=== PATIENT | male | born 2000 | race African-American/Black ===

== ENCOUNTER 2023-09-11 19:06 | Emergency (ER) | payer BC ==
[~2023-09-11] VITALS: Ht 185.4 cm; Wt 90.9 kg
[~2023-09-11 19:06] MED LIST: BACTRIM DS 8001 TAB PO
[2023-09-11 19:10] VITALS: BP 134/83; TEMP 98.3
[2023-09-11] MEDS ORDERED: NORCO 325 MG-51 TAB PO (19:39)
[2023-09-11 20:03] VITALS: PULSE 89
== END 2023-09-11 20:05 | disposition home or self-care (01) ==
LOC: COL.ER 19:06
DX: S86.001A Unspecified injury of right Achilles tendon, initial encounter (principal); X50.1XXA Overexertion from prolonged static or awkward postures, initial encounter; Y93.67 Activity, basketball
CPT/HCPCS: J2270; L4386

== ENCOUNTER 2023-09-13 08:30 | Day surgery (SDC) | payer BC ==
[~2023-09-13] VITALS: Ht 185.4 cm; Wt 93.4 kg
[~2023-09-13 08:30] MED LIST changes: +NORCO 325 MG-51 TAB PO
[2023-09-13 09:58] VITALS: BP 124/67; PULSE 74; TEMP 98.2
--- NOTE | 2023-09-13 10:01 | NUR ---
1000 PHYSICAL THERAPY HERE AND INSTRUCTS PATIENT ON PROPER CRUTCH WALKING AND TRANSFERRING. PATIENT AMBULATES IN HALLWAY DEMONSTRATING PROPER TECHNIQUE OF CRUTCH WALKING. PATIENT WAS ADMITTED WITH CAM BOOT IN PLACE.
[2023-09-13 13:13] VITALS: BP 141/90; PULSE 74; TEMP 97.4
[2023-09-13 13:28] VITALS: BP 133/99; PULSE 71
[2023-09-13 13:42] VITALS: BP 147/78; PULSE 68
--- NOTE | 2023-09-13 15:09 | NUR ---
1313-REPORT OBTAINED FROM ZACHERY KELLY. PATIENT ARRIVED VIA CART TO [facility] [place] [facility], ALERT AND ORIENTED ON ARRIVAL. BEAR HUGGER BLANKET IN PLACE. VITAL SIGNS TAKEN, VSS. PATIENT DENIES PAIN OR NAUSEA. REPORTS HEAVINESS AND NUMBNESS TO RLE. ABLE TO WIGGLE TOES MINIMALLY ON COMMAND. DRESSINGS CDI. 1330-PT TOLERATING PO INTAKE WELL, DENIES COMPLAINTS. VSS. UPDATE CALLED TO FRIEND FOR RIDE HOME. 1345-DISCHARGE INSTRUCTIONS REVIEWED WITH PT, QUESTIONS INVITED. 1400-IV CATHETER DISCONTINUED, TIP INTACT. PRESSURE HELD AND BANDAGE APPLIED. PATIENT DRESSED WITH ASSISTANCE. 1408-PATIENT DISCHARGED HOME TO [facility] VIA WHEELCHAIR, ACCOMPANIED BY FRIEND. ALL BELONGINGS AND D/C PAPERWORK SENT WITH PT. PT INSTRUCTED TO SINGER SONGWRITER CRUTCHES ON TRANSPORT HOME.
[2023-09-13 16:07] VITALS: BP 127/83; PULSE 73; TEMP 97.3
== END 2023-09-13 14:08 | disposition home or self-care (01) ==
LOC: SDCO 08:30
DX: S86.011A Strain of right Achilles tendon, initial encounter (principal); F17.290 Nicotine dependence, other tobacco product, uncomplicated; G89.18 Other acute postprocedural pain; W13.8XXA Fall from, out of or through other building or structure, initial encounter; Y93.67 Activity, basketball
CPT/HCPCS: J0330; J0690; J1100; J2250; J2405; J2704; J2795; J3010; J7120